=== PATIENT | male | born 1980 | race Caucasian/White ===

== ENCOUNTER 2019-07-05 10:21 | Emergency (ER) | payer SELFPAY ==
[~2019-07-05] VITALS: Ht 167.6 cm; Wt 93.9 kg
[2019-07-05 10:34] VITALS: Ht 167.6 cm; Wt 93.9 kg
[2019-07-05 13:25] VITALS: BP 92/52
== END 2019-07-05 13:25 | disposition home or self-care (01) ==
LOC: ED 10:21
DX: M54.5 Low back pain (principal); R10.9 Unspecified abdominal pain; Z88.8 Allergy status to other drugs, medicaments and biological substances
CPT/HCPCS: J1885